=== PATIENT | male | born 1955 | race Caucasian/White ===

== ENCOUNTER 2021-02-07 10:48 | Inpatient (IN) | payer MEDICARE, OTHER ==
[2021-02-07] MEDS ORDERED: Ondansetron 4 MG/2 ML SDV ONE (10:52)
[2021-02-07] MEDS ORDERED: Morphine 2 MG/ML SYRINGE ONE ×2 (10:52→11:14)
[2021-02-07] MEDS ORDERED: Sodium Chloride 0.9% 1,000 ML IV ONE (11:11)
[2021-02-07] MEDS ORDERED: Morphine 2 MG/ML SYRINGE IVPUSH ONE ×2 (11:13)
[2021-02-07] MEDS ORDERED: Ondansetron 4 MG/2 ML SDV IVPUSH ONE (11:13)
[2021-02-07] MEDS ORDERED: Iopamidol 755 Mg/ML 75 ML Bottle IVPUSH ONE (11:20)
--- NOTE | 2021-02-07 11:21 | EDM.PDOC ---
ED HPI GENERAL MEDICAL PROBLEM - General Chief Complaint: Abdominal Pain Stated Complaint: LEFT FLANK PAIN, lLEFT BELLY PAIN Time Seen by Provider: 02/07/21 11:00 Source of Information: Reports: Patient History Limitations: Reports: No Limitations - History of Present Illness INITIAL COMMENTS - FREE TEXT/NARRATIVE: 65-year-old male presents to the emergency room with complaints of left flank and abdominal pain that started at midnight. He reports the pain is sharp and intense colicky pain. He has had a history of kidney stones in the past with previous lithotripsies. He reports that this is similar to his previous experiences. He is also noticing some lower abdominal pain as well. He has been experiencing nausea and and retching. His symptoms started about midnight last night. He is from [facility] has been in the [facility] since Wednesday hunting pheasants and ducks with friends. He is otherwise a healthy gentleman he does not take any prescribed medications. No history of diabetes, hypertension, no GERD. Onset: Today Onset Date: 02/07/21 Onset Time: 00:00 Duration: Hour(s):, Colic, Constant Location: Reports: Abdomen, Back, Radiates to (Left flank into his abdomen) Quality: Reports: Stabbing Severity: Severe Improves with: Reports: None Worsens with: Reports: None Associated Symptoms: Reports: Nausea/Vomiting. 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 [No Known Home Meds] 02/07/21 [History] ED ROS GENERAL - Review of Systems Review Of Systems: See Below Constitutional: Reports: No Symptoms HEENT: Reports: No Symptoms Respiratory: Reports: No Symptoms Cardiovascular: Reports: No Symptoms Endocrine: Reports: No Symptoms GI/Abdominal: Reports: Abdominal Pain, Nausea, Vomiting : Reports: Flank Pain. Denies: Dysuria, Hematuria Musculoskeletal: Reports: No Symptoms Skin: Reports: No Symptoms Neurological: Reports: No Symptoms Psychiatric: Reports: No Symptoms Hematologic/Lymphatic: Reports: No Symptoms Immunologic: Reports: No Symptoms ED EXAM, GI/ABD - Physical Exam Exam: See Below Text/Narrative:: Middle-age male in acute distress with a colicky pain. Exam Limited By: No Limitations General Appearance: Alert, WD/WN, Severe Distress Eyes: Bilateral: EOMI Ears: Hearing Grossly Normal Nose: Normal Inspection Throat/Mouth: Normal Voice, No Airway Compromise Head: Atraumatic, Normocephalic Neck: Normal Inspection, Supple, Non-Tender, Full Range of Motion Respiratory/Chest: No Respiratory Distress, Lungs Clear, Normal Breath Sounds Cardiovascular: Normal Peripheral Pulses, Regular Rate, Rhythm GI/Abdominal Exam: Normal Bowel Sounds, Soft, No Organomegaly, No Distention, No Abnormal Bruit, No Mass. No: Distended, Guarding, Rigid Back Exam: Normal Inspection Extremities: Normal Inspection, Normal Range of Motion, Non-Tender, No Pedal Edema, Normal Capillary Refill Neurological: Alert, Oriented, No Motor/Sensory Deficits Psychiatric: Normal Affect, Normal Mood Skin Exam: Warm, Dry, Intact, Normal Color, No Rash Lymphatic: No Adenopathy Course - Vital Signs Last Recorded V/S: Last Vital Signs Temp 97.2 F 02/07/21 10:50 Pulse 95 02/07/21 10:50 Resp 24 H 02/07/21 10:50 BP 152/105 H 02/07/21 10:50 Pulse Ox 98 02/07/21 10:50 - Orders/Labs/Meds Orders: Active Orders 24 hr Category Date Time Status AMYLASE [CHEM] Stat Lab 02/07/21 11:00 Received LIPASE [CHEM] Stat Lab 02/07/21 11:00 Received MAGNESIUM [CHEM] Stat Lab 02/07/21 11:00 Received HYDROmorphone [Dilaudid] Med 02/07/21 13:22 Active 1 mg IVPUSH Q1H PRN Sodium Chloride 0.9% [Normal Saline] 1,000 ml Med 02/07/21 13:30 Active IV ASDIRECTED Sodium Chloride 0.9% [Normal Saline] 50 ml Med 02/07/21 11:30 Active IV ASDIRECTED Medication Orders Hydromorphone HCl (Hydromorphone 1 Mg/Ml Syringe) 1 mg IVPUSH Q1H PRN PRN Reason: Abdominal Pain Last Admin: 02/07/21 13:28 Dose: 1 mg Documented by: TEDDY Sodium Chloride (Normal Saline) 50 mls @ 200 mls/min IV ASDIRECTED HCAD Last Admin: 02/07/21 12:32 Dose: 200 mls/min Documented by: LANCE Sodium Chloride (Normal Saline) 1,000 mls @ 150 mls/hr IV ASDIRECTED CHAD Last Admin: 02/07/21 13:31 Dose: 150 mls/hr Documented by: TEDDY Labs: Laboratory Tests 02/07/21 02/07/21 02/07/21 Range/Units 11:00 11:00 11:00 WBC 12.72 H (5.00-10.00) 10^3/uL RBC 5.10 (4.50-6.00) 10^6/uL Hgb 15.9 (13.0-17.0) g/dL Hct 47.3 (40.0-52.0) % MCV 92.7 H (82.0-92.0) fL MCH 31.2 H (27.0-31.0) pg MCHC 33.6 (32.0-36.0) g/dL RDW 12.3 (11.5-14.5) % Plt Count 326 (150-400) 10^3/uL MPV 9.8 (7.4-10.4) fL Add Manual Diff Yes Neutrophils % (Manual) 89 H (50-70) % Band Neutrophils % 1 L (4-12) % Lymphocytes % (Manual) 7 L (20-40) % Atypical Lymphs % 0 Monocytes % (Manual) 3 (2-8) % Eosinophils % (Manual) 0 L (1-3) % Basophils % (Manual) 0 (0-1) % Platelet Estimate Adequate Sodium 144 (136-145) mmol/L Potassium 4.3 (3.5-5.1) mmol/L Chloride 106 (98-107) mmol/L Carbon Dioxide 28.2 (21.0-32.0) mmol/L Anion Gap 14.1 (5-15) mmol/L BUN 22 H (7-18) mg/dL Creatinine 1.08 (0.51-1.17) mg/dL Est Cr Clr Drug Dosing 73.85 mL/min Estimated GFR (MDRD) > 60 mL/min Glucose 175 H (70-140) mg/dL Lactic Acid 2.1 H (0.4-2.0) mmol/L Calcium 9.2 (8.7-10.3) mg/dL Total Bilirubin 0.4 (0.2-1.0) mg/dL AST 29 (15-37) U/L ALT 52 (14-63) U/L Alkaline Phosphatase 74 (46-116) U/L Total Protein 7.5 (6.4-8.2) g/dL Albumin 4.09 (3.40-5.00) g/dL Meds: Medications Generic Name Dose Route Start Last Admin Trade Name Freq PRN Reason Stop Dose Admin Hydromorphone HCl 1 mg 02/07/21 13:22 02/07/21 13:28 Hydromorphone 1 Mg/Ml Syringe IVPUSH 1 mg Q1H PRN Administration Abdominal Pain Sodium Chloride 50 mls @ 200 mls/min 02/07/21 11:30 02/07/21 12:32 Normal Saline IV 200 mls/min ASDIRECTED CHAD Administration Sodium Chloride 1,000 mls @ 150 mls/hr 02/07/21 13:30 02/07/21 13:31 Normal Saline IV 150 mls/hr ASDIRECTED CHAD Administration Discontinued Medications Generic Name Dose Route Start Last Admin Trade Name Freq PRN Reason Stop Dose Admin Hydromorphone HCl 1 mg 02/07/21 11:40 02/07/21 11:50 Hydromorphone 1 Mg/Ml Syringe IVPUSH 02/07/21 11:41 1 mg ONETIME ONE Administration Hydromorphone HCl Confirm 02/07/21 11:42 02/07/21 13:17 Hydromorphone 1 Mg/Ml Syringe Administered 02/07/21 11:43 Not Given Dose 1 mg .ROUTE .STK-MED ONE Sodium Chloride 1,000 mls @ 1,000 mls/hr 02/07/21 11:11 02/07/21 11:05 Normal Saline IV 02/07/21 12:10 1,000 mls/hr .BOLUS ONE Administration Iopamidol 75 ml 02/07/21 11:20 02/07/21 12:32 Iopamidol 755 Mg/Ml 75 Ml Bottle IVPUSH 02/07/21 11:21 75 ml ONETIME ONE Administration Morphine Sulfate Confirm 02/07/21 10:52 02/07/21 11:32 Morphine 2 Mg/Ml Syringe Administered 02/07/21 10:53 Not Given Dose 2 mg .ROUTE .STK-MED ONE Morphine Sulfate 2 mg 02/07/21 11:13 02/07/21 11:00 Morphine 2 Mg/Ml Syringe IVPUSH 02/07/21 11:14 2 mg ONETIME ONE Administration Morphine Sulfate 2 mg 02/07/21 11:13 02/07/21 11:20 Morphine 2 Mg/Ml Syringe IVPUSH 02/07/21 11:14 2 mg ONETIME ONE Administration Morphine Sulfate Confirm 02/07/21 11:14 02/07/21 11:32 Morphine 2 Mg/Ml Syringe Administered 02/07/21 11:15 Not Given Dose 2 mg .ROUTE .STK-MED ONE Ondansetron HCl Confirm 02/07/21 10:52 02/07/21 11:32 Ondansetron 4 Mg/2 Ml Sdv Administered 02/07/21 10:53 Not Given Dose 4 mg .ROUTE .STK-MED ONE Ondansetron HCl 4 mg 02/07/21 11:13 02/07/21 10:56 Ondansetron 4 Mg/2 Ml Sdv IVPUSH 02/07/21 11:14 4 mg ONETIME ONE Administration - Re-Assessments/Exams Free Text/Narrative Re-Assessment/Exam: 02/07/21 11:25 Patient was given 4 mg IV Zofran, patient has been given a total of 4 mg IV morphine patient upon arrival was in severe distress due to pain which she rated at 10 out of 10 upon arrival. Pain is now a 4 out of 10. 02/07/21 12:10 Patient was given additional 1 mg of IV Dilaudid. Pain is now a 2 out of 10. He is resting comfortably on the cart Departure - Departure Time of Disposition: 14:19 Disposition: Admitted As Inpatient 65 Condition: Fair Clinical Impression: Renal calculus, left Acute pancreatitis Qualifiers: Pancreatitis type: unspecified pancreatitis type Acute pancreatitis complication: no infection or necrosis Qualified Code(s): K85.90 - Acute pancreatitis without necrosis or infection, unspecified - Discharge Information Referrals: PCP,None [Ordering Only Provider] - Forms: ED Department Discharge Sepsis Event Note (ED) - Focused Exam Vital Signs: Vital Signs Temp Pulse Resp BP Pulse Ox 02/07/21 10:50 97.2 F 95 24 H 152/105 H 98 - My Orders Last 24 Hours: My Active Orders 02/07/21 11:00 AMYLASE [CHEM] Stat LIPASE [CHEM] Stat MAGNESIUM [CHEM] Stat 02/07/21 11:30 Sodium Chloride 0.9% [Normal Saline] 50 ml IV ASDIRECTED 02/07/21 13:22 HYDROmorphone [Dilaudid] 1 mg IVPUSH Q1H PRN 02/07/21 13:30 Sodium Chloride 0.9% [Normal Saline] 1,000 ml IV ASDIRECTED - Assessment/Plan Last 24 Hours: My Active Orders 02/07/21 11:00 AMYLASE [CHEM] Stat LIPASE [CHEM] Stat MAGNESIUM [CHEM] Stat 02/07/21 11:30 Sodium Chloride 0.9% [Normal Saline] 50 ml IV ASDIRECTED 02/07/21 13:22 HYDROmorphone [Dilaudid] 1 mg IVPUSH Q1H PRN 02/07/21 13:30 Sodium Chloride 0.9% [Normal Saline] 1,000 ml IV ASDIRECTED Assessment:: 1. Acute pancreatitis 2. Nonobstructive left renal calculus Plan: 1. Admit to inpatient to Dr. Chrissy Delarosa 2. IV fluid resuscitation 3. Pain management. 4. Bowel rest, n.p.o.
[2021-02-07 11:30] LABS: ANION GAP 14.1 mmol/L (5-15); CHLORIDE,CL 106 mmol/L (98-107); SODIUM,NA 144 mmol/L (136-145)
[2021-02-07] MEDS ORDERED: Sodium Chloride 0.9% 50 ML IV SCH (11:30)
[2021-02-07] MEDS ORDERED: HYDROmorphone 1 MG/ML Syringe IVPUSH ONE (11:40)
[2021-02-07] MEDS ORDERED: HYDROmorphone 1 MG/ML Syringe ONE (11:42)
--- NOTE | 2021-02-07 12:47 | CT ---
[id number] CT/CT Abdomen Pelvis W IV EXAM: CT Abdomen Pelvis W IV INDICATION: KIDNEY STONE, FLANK ABDOMEN PAIN. COMPARISON: None. DISCUSSION: There is edema surrounding the pancreas and extending into the upper mesentery most suggestive of acute pancreatitis. No evident necrosis or fluid collection. Small volume free fluid in the pelvis and paracolic gutters. 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 Mild prostatomegaly. Atherosclerotic plaque throughout the aorta and in scattered major branches. Hepatic steatosis. 9 mm hypodensity in the superior right lobe of the liver likely representing a small cyst, but too small to completely characterize. Scattered nonobstructing left intrarenal calculi measuring up to 4 mm. No ureteral calculus or hydronephrosis on either side. Mildly prominent stool volume in the proximal colon. Upper abdominal varices may relate to portal hypertension. Mild gynecomastia. Mild dependent atelectasis in the imaged lung bases. Degenerative changes in the spine and hips. The spleen, adrenal glands, right kidney, gallbladder, and appendix are normal in appearance. IMPRESSION: 1. Acute interstitial pancreatitis with small volume ascites. Correlation with pancreatic enzymes may be useful for confirmation. 2. Hepatic steatosis. 3. Upper abdominal varices suggestive of portal hypertension. 4. Nonobstructing left intrarenal calculi. No ureteral calculus or hydronephrosis. Junior Robbins MD 02/07/21 2344 Thank you for allowing us to participate in the care of your patient.
[2021-02-07] MEDS: HYDROmorphone 1 MG/ML Syringe IVPUSH PRN ×7 (13:28→22:35)
[2021-02-07] MEDS: Sodium Chloride 0.9% 1,000 ML IV SCH ×2 (13:31→20:20)
[2021-02-08] MEDS: HYDROmorphone 1 MG/ML Syringe IVPUSH PRN ×6 (01:49→22:23)
[2021-02-08] MEDS: Sodium Chloride 0.9% 1,000 ML IV SCH ×3 (02:49→15:50)
[2021-02-08 07:55] LABS: ANION GAP 10.4 mmol/L (5-15); CHLORIDE,CL 110 mmol/L (98-107); SODIUM,NA 144 mmol/L (136-145)
--- NOTE | 2021-02-08 11:04 | PCM.PN ---
- General Info Date of Service: 02/08/21 Admission Dx/Problem (Free Text): Acute pancreatitis - Review of Systems Systems Review Comment:: Gregory is seen today on inpatient rounds for an admission on 02/07 with acute pancreatitis. He has no clear etiology for pancreatitis. He is in the [facility] from [facility]. He did have some alcoholic beverages but nothing excessive and has no hx of EtOH abuse. He has not had his lipids checked in a while per his report. He is not on any prescription medications but does take some supplements. Since admission he has had a total mg of IV hydromorphone. It can be given up to every 1 hour, he tries to make it 2-3 hours between dosing. He initially had LUQ pain but not feels it has moved to his LLQ and he feels like he has stool he needs to pass. 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 He has had renal calculi in the past. This pain feels somewhat different. He has been NPO with ice chips. He has not really been nauseated. His Cathleen is present today with him. He has never had pancreatitis in the past. His lipase has trended down from 6286 on 02/07 to 2761 today (02/08). He is anxious to go home but also recognizes that he shouldn't push it as he wants to be better before discharge. - Patient Data Vitals - Most Recent: Last Vital Signs Temp 98.2 F 02/08/21 06:55 Pulse 98 02/08/21 06:55 Resp 20 02/08/21 06:55 BP 145/79 H 02/08/21 06:55 Pulse Ox 91 L 02/08/21 06:55 Weight - Most Recent: 188 lb I&O - Last 24 Hours: Intake & Output 02/07/21 02/08/21 02/08/21 22:59 06:59 14:59 Intake Total 531 1675 Output Total 350 Balance 181 1675 Lab Results Last 24 Hours: Laboratory Results - last 24 hr 02/07/21 02/07/21 02/07/21 Range/Units 11:00 11:00 11:00 WBC 12.72 H (5.00-10.00) 10^3/uL RBC 5.10 (4.50-6.00) 10^6/uL Hgb 15.9 (13.0-17.0) g/dL Hct 47.3 (40.0-52.0) % MCV 92.7 H (82.0-92.0) fL MCH 31.2 H (27.0-31.0) pg MCHC 33.6 (32.0-36.0) g/dL RDW 12.3 (11.5-14.5) % Plt Count 326 (150-400) 10^3/uL MPV 9.8 (7.4-10.4) fL Immature Gran % (Auto) (0.0-5.0) % Neut % (Auto) (50.0-70.0) % Lymph % (Auto) (20.0-40.0) % [place] % (Auto) (2.0-8.0) % Eos % (Auto) (1.0-3.0) % Baso % (Auto) (0.0-1.0) % Neut # (Auto) (2.50-7.00) 10^3/uL Lymph # (Auto) (1.00-4.00) 10^3/uL [place] # (Auto) (0.10-0.80) 10^3/uL Eos # (Auto) (0.10-0.30) 10^3/uL Baso # (Auto) (0.00-0.10) 10^3/uL Immature Gran # (Auto) (0.00-0.50) 10^3/uL Add Manual Diff Yes Neutrophils % (Manual) 89 H (50-70) % Band Neutrophils % 1 L (4-12) % Lymphocytes % (Manual) 7 L (20-40) % Atypical Lymphs % 0 Monocytes % (Manual) 3 (2-8) % Eosinophils % (Manual) 0 L (1-3) % Basophils % (Manual) 0 (0-1) % Platelet Estimate Adequate Sodium 144 (136-145) mmol/L Potassium 4.3 (3.5-5.1) mmol/L Chloride 106 (98-107) mmol/L Carbon Dioxide 28.2 (21.0-32.0) mmol/L Anion Gap 14.1 (5-15) mmol/L BUN 22 H (7-18) mg/dL Creatinine 1.08 (0.51-1.17) mg/dL Est Cr Clr Drug Dosing 73.85 mL/min Estimated GFR (MDRD) > 60 mL/min Glucose 175 H (70-140) mg/dL Lactic Acid (0.4-2.0) mmol/L Calcium 9.2 (8.7-10.3) mg/dL Magnesium 2.1 (1.8-2.4) mg/dL Total Bilirubin 0.4 (0.2-1.0) mg/dL AST 29 (15-37) U/L ALT 52 (14-63) U/L Alkaline Phosphatase 74 (46-116) U/L Total Protein 7.5 (6.4-8.2) g/dL Albumin 4.09 (3.40-5.00) g/dL Amylase > 650 H* (25-125) U/L Lipase 6286 H (73-393) U/L SARS CoV-2 RNA Rapid MAGGIE (NEGATIVE) 02/07/21 02/07/21 02/08/21 Range/Units 11:00 17:45 07:10 WBC 13.99 H (5.00-10.00) 10^3/uL RBC 4.56 (4.50-6.00) 10^6/uL Hgb 14.1 D (13.0-17.0) g/dL Hct 43.1 (40.0-52.0) % MCV 94.5 H (82.0-92.0) fL MCH 30.9 (27.0-31.0) pg MCHC 32.7 (32.0-36.0) g/dL RDW 13.0 (11.5-14.5) % Plt Count 274 (150-400) 10^3/uL MPV 9.7 (7.4-10.4) fL Immature Gran % (Auto) 0.4 (0.0-5.0) % Neut % (Auto) 88.3 H (50.0-70.0) % Lymph % (Auto) 5.2 L (20.0-40.0) % [place] % (Auto) 5.9 (2.0-8.0) % Eos % (Auto) 0.1 L (1.0-3.0) % Baso % (Auto) 0.1 (0.0-1.0) % Neut # (Auto) 12.36 H (2.50-7.00) 10^3/uL Lymph # (Auto) 0.73 L (1.00-4.00) 10^3/uL [place] # (Auto) 0.82 H (0.10-0.80) 10^3/uL Eos # (Auto) 0.01 L (0.10-0.30) 10^3/uL Baso # (Auto) 0.02 (0.00-0.10) 10^3/uL Immature Gran # (Auto) 0.05 (0.00-0.50) 10^3/uL Add Manual Diff Neutrophils % (Manual) (50-70) % Band Neutrophils % (4-12) % Lymphocytes % (Manual) (20-40) % Atypical Lymphs % Monocytes % (Manual) (2-8) % Eosinophils % (Manual) (1-3) % Basophils % (Manual) (0-1) % Platelet Estimate Sodium (136-145) mmol/L Potassium (3.5-5.1) mmol/L Chloride (98-107) mmol/L Carbon Dioxide (21.0-32.0) mmol/L Anion Gap (5-15) mmol/L BUN (7-18) mg/dL Creatinine (0.51-1.17) mg/dL Est Cr Clr Drug Dosing mL/min Estimated GFR (MDRD) mL/min Glucose (70-140) mg/dL Lactic Acid 2.1 H (0.4-2.0) mmol/L Calcium (8.7-10.3) mg/dL Magnesium (1.8-2.4) mg/dL Total Bilirubin (0.2-1.0) mg/dL AST (15-37) U/L ALT (14-63) U/L Alkaline Phosphatase (46-116) U/L Total Protein (6.4-8.2) g/dL Albumin (3.40-5.00) g/dL Amylase (25-125) U/L Lipase (73-393) U/L SARS CoV-2 RNA Rapid MAGGIE Negative (NEGATIVE) 02/08/21 Range/Units 07:10 WBC (5.00-10.00) 10^3/uL RBC (4.50-6.00) 10^6/uL Hgb (13.0-17.0) g/dL Hct (40.0-52.0) % MCV (82.0-92.0) fL MCH (27.0-31.0) pg MCHC (32.0-36.0) g/dL RDW (11.5-14.5) % Plt Count (150-400) 10^3/uL MPV (7.4-10.4) fL Immature Gran % (Auto) (0.0-5.0) % Neut % (Auto) (50.0-70.0) % Lymph % (Auto) (20.0-40.0) % [place] % (Auto) (2.0-8.0) % Eos % (Auto) (1.0-3.0) % Baso % (Auto) (0.0-1.0) % Neut # (Auto) (2.50-7.00) 10^3/uL Lymph # (Auto) (1.00-4.00) 10^3/uL [place] # (Auto) (0.10-0.80) 10^3/uL Eos # (Auto) (0.10-0.30) 10^3/uL Baso # (Auto) (0.00-0.10) 10^3/uL Immature Gran # (Auto) (0.00-0.50) 10^3/uL Add Manual Diff Neutrophils % (Manual) (50-70) % Band Neutrophils % (4-12) % Lymphocytes % (Manual) (20-40) % Atypical Lymphs % Monocytes % (Manual) (2-8) % Eosinophils % (Manual) (1-3) % Basophils % (Manual) (0-1) % Platelet Estimate Sodium 144 (136-145) mmol/L Potassium 4.1 (3.5-5.1) mmol/L Chloride 110 H (98-107) mmol/L Carbon Dioxide 27.7 (21.0-32.0) mmol/L Anion Gap 10.4 (5-15) mmol/L BUN 19 H (7-18) mg/dL Creatinine 1.01 (0.51-1.17) mg/dL Est Cr Clr Drug Dosing 78.97 mL/min Estimated GFR (MDRD) > 60 mL/min Glucose 143 H (70-140) mg/dL Lactic Acid (0.4-2.0) mmol/L Calcium 8.0 L (8.7-10.3) mg/dL Magnesium (1.8-2.4) mg/dL Total Bilirubin 0.9 (0.2-1.0) mg/dL AST 25 (15-37) U/L ALT 36 (14-63) U/L Alkaline Phosphatase 50 (46-116) U/L Total Protein 6.2 L (6.4-8.2) g/dL Albumin 3.05 L (3.40-5.00) g/dL Amylase (25-125) U/L Lipase 2761 H (73-393) U/L SARS CoV-2 RNA Rapid MAGGIE (NEGATIVE) Med Orders - Current: Current Medications Hydromorphone HCl (Hydromorphone 1 Mg/Ml Syringe) 1 mg IVPUSH Q1H PRN PRN Reason: Abdominal Pain Last Admin: 02/08/21 08:35 Dose: 1 mg Documented by: Sodium Chloride (Normal Saline) 50 mls @ 200 mls/min IV ASDIRECTED [facility] Last Admin: 02/07/21 12:32 Dose: 200 mls/min Documented by: Sodium Chloride (Normal Saline) 1,000 mls @ 150 mls/hr IV ASDIRECTED [facility] Last Admin: 02/08/21 09:22 Dose: 150 mls/hr Documented by: Naloxegol (Naloxegol Oxalate 25 Mg Tab) 25 mg PO DAILY [facility] Ondansetron HCl (Ondansetron 4 Mg/2 Ml Sdv) 4 mg IVPUSH Q4H PRN PRN Reason: Nausea/Vomiting Discontinued Medications Hydromorphone HCl (Hydromorphone 1 Mg/Ml Syringe) 1 mg IVPUSH ONETIME ONE Stop: 02/07/21 11:41 Last Admin: 02/07/21 11:50 Dose: 1 mg Documented by: Hydromorphone HCl (Hydromorphone 1 Mg/Ml Syringe) Confirm Administered Dose 1 mg .ROUTE .STK-MED ONE Stop: 02/07/21 11:43 Last Admin: 02/07/21 13:17 Dose: Not Given Documented by: Sodium Chloride (Normal Saline) 1,000 mls @ 1,000 mls/hr IV .BOLUS ONE Stop: 02/07/21 12:10 Last Admin: 02/07/21 11:05 Dose: 1,000 mls/hr Documented by: Iopamidol (Iopamidol 755 Mg/Ml 75 Ml Bottle) 75 ml IVPUSH ONETIME ONE Stop: 02/07/21 11:21 Last Admin: 02/07/21 12:32 Dose: 75 ml Documented by: Morphine Sulfate (Morphine 2 Mg/Ml Syringe) Confirm Administered Dose 2 mg .ROUTE .STK-MED ONE Stop: 02/07/21 10:53 Last Admin: 02/07/21 11:32 Dose: Not Given Documented by: Morphine Sulfate (Morphine 2 Mg/Ml Syringe) 2 mg IVPUSH ONETIME ONE Stop: 02/07/21 11:14 Last Admin: 02/07/21 11:00 Dose: 2 mg Documented by: Morphine Sulfate (Morphine 2 Mg/Ml Syringe) 2 mg IVPUSH ONETIME ONE Stop: 02/07/21 11:14 Last Admin: 02/07/21 11:20 Dose: 2 mg Documented by: Morphine Sulfate (Morphine 2 Mg/Ml Syringe) Confirm Administered Dose 2 mg .ROU TE .STK-MED ONE Stop: 02/07/21 11:15 Last Admin: 02/07/21 11:32 Dose: Not Given Documented by: Ondansetron HCl (Ondansetron 4 Mg/2 Ml Sdv) Confirm Administered Dose 4 mg .ROUTE .STK-MED ONE Stop: 02/07/21 10:53 Last Admin: 02/07/21 11:32 Dose: Not Given Documented by: Ondansetron HCl (Ondansetron 4 Mg/2 Ml Sdv) 4 mg IVPUSH ONETIME ONE Stop: 02/07/21 11:14 Last Admin: 02/07/21 10:56 Dose: 4 mg Documented by: - Exam General: Alert, Oriented, Cooperative, No Acute Distress Lungs: Clear to Auscultation, Normal Respiratory Effort Cardiovascular: Regular Rate, Regular Rhythm, No Murmurs GI/Abdominal Exam: Normal Bowel Sounds, Soft, Non-Tender, No Organomegaly, No Di stention Extremities: No Pedal Edema - Patient Data Lab Results Last 24 hrs: Laboratory Results - last 24 hr 02/07/21 02/07/21 02/07/21 Range/Units 11:00 11:00 11:00 WBC 12.72 H (5.00-10.00) 10^3/uL RBC 5.10 (4.50-6.00) 10^6/uL Hgb 15.9 (13.0-17.0) g/dL Hct 47.3 (40.0-52.0) % MCV 92.7 H (82.0-92.0) fL MCH 31.2 H (27.0-31.0) pg MCHC 33.6 (32.0-36.0) g/dL RDW 12.3 (11.5-14.5) % Plt Count 326 (150-400) 10^3/uL MPV 9.8 (7.4-10.4) fL Immature Gran % (Auto) (0.0-5.0) % Neut % (Auto) (50.0-70.0) % Lymph % (Auto) (20.0-40.0) % [place] % (Auto) (2.0-8.0) % Eos % (Auto) (1.0-3.0) % Baso % (Auto) (0.0-1.0) % Neut # (Auto) (2.50-7.00) 10^3/uL Lymph # (Auto) (1.00-4.00) 10^3/uL [place] # (Auto) (0.10-0.80) 10^3/uL Eos # (Auto) (0.10-0.30) 10^3/uL Baso # (Auto) (0.00-0.10) 10^3/uL Immature Gran # (Auto) (0.00-0.50) 10^3/uL Add Manual Diff Yes Neutrophils % (Manual) 89 H (50-70) % Band Neutrophils % 1 L (4-12) % Lymphocytes % (Manual) 7 L (20-40) % Atypical Lymphs % 0 Monocytes % (Manual) 3 (2-8) % Eosinophils % (Manual) 0 L (1-3) % Basophils % (Manual) 0 (0-1) % Platelet Estimate Adequate Sodium 144 (136-145) mmol/L Potassium 4.3 (3.5-5.1) mmol/L Chloride 106 (98-107) mmol/L Carbon Dioxide 28.2 (21.0-32.0) mmol/L Anion Gap 14.1 (5-15) mmol/L BUN 22 H (7-18) mg/dL Creatinine 1.08 (0.51-1.17) mg/dL Est Cr Clr Drug Dosing 73.85 mL/min Estimated GFR (MDRD) > 60 mL/min Glucose 175 H (70-140) mg/dL Lactic Acid (0.4-2.0) mmol/L Calcium 9.2 (8.7-10.3) mg/dL Magnesium 2.1 (1.8-2.4) mg/dL Total Bilirubin 0.4 (0.2-1.0) mg/dL AST 29 (15-37) U/L ALT 52 (14-63) U/L Alkaline Phosphatase 74 (46-116) U/L Total Protein 7.5 (6.4-8.2) g/dL Albumin 4.09 (3.40-5.00) g/dL Amylase > 650 H* (25-125) U/L Lipase 6286 H (73-393) U/L SARS CoV-2 RNA Rapid MAGGIE (NEGATIVE) 02/07/21 02/07/21 02/08/21 Range/Units 11:00 17:45 07:10 WBC 13.99 H (5.00-10.00) 10^3/uL RBC 4.56 (4.50-6.00) 10^6/uL Hgb 14.1 D (13.0-17.0) g/dL Hct 43.1 (40.0-52.0) % MCV 94.5 H (82.0-92.0) fL MCH 30.9 (27.0-31.0) pg MCHC 32.7 (32.0-36.0) g/dL RDW 13.0 (11.5-14.5) % Plt Count 274 (150-400) 10^3/uL MPV 9.7 (7.4-10.4) fL Immature Gran % (Auto) 0.4 (0.0-5.0) % Neut % (Auto) 88.3 H (50.0-70.0) % Lymph % (Auto) 5.2 L (20.0-40.0) % [place] % (Auto) 5.9 (2.0-8.0) % Eos % (Auto) 0.1 L (1.0-3.0) % Baso % (Auto) 0.1 (0.0-1.0) % Neut # (Auto) 12.36 H (2.50-7.00) 10^3/uL Lymph # (Auto) 0.73 L (1.00-4.00) 10^3/uL [place] # (Auto) 0.82 H (0.10-0.80) 10^3/uL Eos # (Auto) 0.01 L (0.10-0.30) 10^3/uL Baso # (Auto) 0.02 (0.00-0.10) 10^3/uL Immature Gran # (Auto) 0.05 (0.00-0.50) 10^3/uL Add Manual Diff Neutrophils % (Manual) (50-70) % Band Neutrophils % (4-12) % Lymphocytes % (Manual) (20-40) % Atypical Lymphs % Monocytes % (Manual) (2-8) % Eosinophils % (Manual) (1-3) % Basophils % (Manual) (0-1) % Platelet Estimate Sodium (136-145) mmol/L Potassium (3.5-5.1) mmol/L Chloride (98-107) mmol/L Carbon Dioxide (21.0-32.0) mmol/L Anion Gap (5-15) mmol/L BUN (7-18) mg/dL Creatinine (0.51-1.17) mg/dL Est Cr Clr Drug Dosing mL/min Estimated GFR (MDRD) mL/min Glucose (70-140) mg/dL Lactic Acid 2.1 H (0.4-2.0) mmol/L Calcium (8.7-10.3) mg/dL Magnesium (1.8-2.4) mg/dL Total Bilirubin (0.2-1.0) mg/dL AST (15-37) U/L ALT (14-63) U/L Alkaline Phosphatase (46-116) U/L Total Protein (6.4-8.2) g/dL Albumin (3.40-5.00) g/dL Amylase (25-125) U/L Lipase (73-393) U/L SARS CoV-2 RNA Rapid MAGGIE Negative (NEGATIVE) 02/08/21 Range/Units 07:10 WBC (5.00-10.00) 10^3/uL RBC (4.50-6.00) 10^6/uL Hgb (13.0-17.0) g/dL Hct (40.0-52.0) % MCV (82.0-92.0) fL MCH (27.0-31.0) pg MCHC (32.0-36.0) g/dL RDW (11.5-14.5) % Plt Count (150-400) 10^3/uL MPV (7.4-10.4) fL Immature Gran % (Auto) (0.0-5.0) % Neut % (Auto) (50.0-70.0) % Lymph % (Auto) (20.0-40.0) % [place] % (Auto) (2.0-8.0) % Eos % (Auto) (1.0-3.0) % Baso % (Auto) (0.0-1.0) % Neut # (Auto) (2.50-7.00) 10^3/uL Lymph # (Auto) (1.00-4.00) 10^3/uL [place] # (Auto) (0.10-0.80) 10^3/uL Eos # (Auto) (0.10-0.30) 10^3/uL Baso # (Auto) (0.00-0.10) 10^3/uL Immature Gran # (Auto) (0.00-0.50) 10^3/uL Add Manual Diff Neutrophils % (Manual) (50-70) % Band Neutrophils % (4-12) % Lymphocytes % (Manual) (20-40) % Atypical Lymphs % Monocytes % (Manual) (2-8) % Eosinophils % (Manual) (1-3) % Basophils % (Manual) (0-1) % Platelet Estimate Sodium 144 (136-145) mmol/L Potassium 4.1 (3.5-5.1) mmol/L Chloride 110 H (98-107) mmol/L Carbon Dioxide 27.7 (21.0-32.0) mmol/L Anion Gap 10.4 (5-15) mmol/L BUN 19 H (7-18) mg/dL Creatinine 1.01 (0.51-1.17) mg/dL Est Cr Clr Drug Dosing 78.97 mL/min Estimated GFR (MDRD) > 60 mL/min Glucose 143 H (70-140) mg/dL Lactic Acid (0.4-2.0) mmol/L Calcium 8.0 L (8.7-10.3) mg/dL Magnesium (1.8-2.4) mg/dL Total Bilirubin 0.9 (0.2-1.0) mg/dL AST 25 (15-37) U/L ALT 36 (14-63) U/L Alkaline Phosphatase 50 (46-116) U/L Total Protein 6.2 L (6.4-8.2) g/dL Albumin 3.05 L (3.40-5.00) g/dL Amylase (25-125) U/L Lipase 2761 H (73-393) U/L SARS CoV-2 RNA Rapid MAGGIE (NEGATIVE) Result Diagrams: 02/08/21 07:10 02/08/21 07:10 Sepsis Event Note - Evaluation Sepsis Screening Result: No Definite Risk - Focused Exam Vital Signs: Vital Signs Temp Pulse Resp BP Pulse Ox 02/08/21 06:55 98.2 F 98 20 145/79 H 91 L 02/08/21 02:00 98.3 F 102 H 20 132/77 91 L - Problem List Review Problem List Initiated/Reviewed/Updated: Yes - My Orders Last 24 Hours: My Active Orders 02/07/21 16:21 Ondansetron [Zofran] 4 mg IVPUSH Q4H PRN 02/08/21 10:59 LIPID PANEL [CHEM] Routine 02/08/21 11:00 Naloxegol Oxalate [Movantik] 25 mg PO DAILY 02/08/21 11:01 A1C [GLYCOSYLATED HEMOGLOBIN,HGBA1C] [CHEM] Routine 02/09/21 05:11 CBC WITH AUTO DIFF [HEME] AM COMPREHENSIVE METABOLIC PN,CMP [CHEM] AM LIPASE [CHEM] AM 02/10/21 05:11 CBC WITH AUTO DIFF [HEME] AM COMPREHENSIVE METABOLIC PN,CMP [CHEM] AM LIPASE [CHEM] AM - Assessment Assessment:: Admission Diagnoses: Acute pancreatitis, no clear etiology - Continue NS at 150 mL/hour - NPO status with ice chips - Hydromorphone 1 mg IV q 1 hour PRN - Lipid panel (elevated total cholesterol and LDL but TG's normal) - Daily labs Elevated fasting blood culture - A1C 5.8, will need monitoring as an outpatient to watch for progression to diabetes Intrarenal nephrolithiasis without obstruction - No further intervention necessary Opioid induced constipation - Start Movantik 25 mg PO daily (02/08) CODE STATUS: Full Code
[2021-02-08 11:21] LABS: HEMOGLOBIN A1C 5.8 % (4.3-5.7)
[2021-02-08] MEDS: Naloxegol Oxalate 25 MG Tab PO SCH (11:24)
[2021-02-08] MEDS: Ondansetron 4 MG/2 ML SDV IVPUSH PRN (17:52)
[2021-02-09] MEDS: HYDROmorphone 1 MG/ML Syringe IVPUSH PRN ×4 (03:37→22:05)
[2021-02-09] MEDS: Sodium Chloride 0.9% 1,000 ML IV SCH ×3 (05:13→21:36)
[2021-02-09 07:40] LABS: ANION GAP 10.7 mmol/L (5-15); CHLORIDE,CL 110 mmol/L (98-107); SODIUM,NA 145 mmol/L (136-145)
[2021-02-09] MEDS: Naloxegol Oxalate 25 MG Tab PO SCH (09:15)
[2021-02-09] MEDS: Ondansetron 4 MG/2 ML SDV IVPUSH PRN (09:23)
--- NOTE | 2021-02-09 12:18 | PCM.PN ---
- General Info Date of Service: 02/09/21 Admission Dx/Problem (Free Text): Acute pancreatitis - Review of Systems Systems Review Comment:: Jennifer is seen today on inpatient rounds. He states the Movantik he received yesterday for opioid induced constipation caused him to have bloating and cramping so he refused today. He has not had a BM but feels like he needs to and is passing flatus. He was able to go up to 6 hours without pain medication. His lipase has dropped from 6286 upon admission to 430 today. He would be willing to try oral intake today. His pain is largely the LLQ, it has moved from initial presentation of LUQ. He is anxious to be discharged to home. - Patient Data Vitals - Most Recent: Last Vital Signs Temp 96.3 F L 02/09/21 10:56 Pulse 98 02/09/21 10:56 Resp 20 02/09/21 10:56 BP 139/84 02/09/21 10:56 Pulse Ox 92 L 02/09/21 10:56 Weight - Most Recent: 188 lb I&O - Last 24 Hours: Intake & Output 02/08/21 02/09/21 02/09/21 22:59 06:59 14:59 Intake Total 1851 1699 Balance 1851 1699 Lab Results Last 24 Hours: Laboratory Results - last 24 hr 02/09/21 02/09/21 Range/Units 07:15 07:15 WBC 12.83 H (5.00-10.00) 10^3/uL RBC 4.04 L (4.50-6.00) 10^6/uL Hgb 12.6 L D (13.0-17.0) g/dL Hct 39.0 L (40.0-52.0) % MCV 96.5 H (82.0-92.0) fL MCH 31.2 H (27.0-31.0) pg MCHC 32.3 (32.0-36.0) g/dL RDW 13.1 (11.5-14.5) % Plt Count 212 (150-400) 10^3/uL MPV 9.3 (7.4-10.4) fL Immature Gran % (Auto) 0.4 (0.0-5.0) % Neut % (Auto) 86.0 H (50.0-70.0) % Lymph % (Auto) 7.4 L (20.0-40.0) % [place] % (Auto) 5.8 (2.0-8.0) % Eos % (Auto) 0.2 L (1.0-3.0) % Baso % (Auto) 0.2 (0.0-1.0) % Neut # (Auto) 11.02 H (2.50-7.00) 10^3/uL Lymph # (Auto) 0.95 L (1.00-4.00) 10^3/uL [place] # (Auto) 0.75 (0.10-0.80) 10^3/uL Eos # (Auto) 0.03 L (0.10-0.30) 10^3/uL Baso # (Auto) 0.03 (0.00-0.10) 10^3/uL Immature Gran # (Auto) 0.05 (0.00-0.50) 10^3/uL Sodium 145 (136-145) mmol/L Potassium 4.1 (3.5-5.1) mmol/L Chloride 110 H (98-107) mmol/L Carbon Dioxide 28.4 (21.0-32.0) mmol/L Anion Gap 10.7 (5-15) mmol/L BUN 20 H (7-18) mg/dL Creatinine 1.01 (0.51-1.17) mg/dL Est Cr Clr Drug Dosing 78.97 mL/min Estimated GFR (MDRD) > 60 mL/min Glucose 127 (70-140) mg/dL Calcium 8.0 L (8.7-10.3) mg/dL Total Bilirubin 0.9 (0.2-1.0) mg/dL AST 25 (15-37) U/L ALT 32 (14-63) U/L Alkaline Phosphatase 48 (46-116) U/L Total Protein 6.1 L (6.4-8.2) g/dL Albumin 2.67 L (3.40-5.00) g/dL Lipase 430 H (73-393) U/L Med Orders - Current: Current Medications Hydromorphone HCl (Hydromorphone 1 Mg/Ml Syringe) 1 mg IVPUSH Q1H PRN PRN Reason: Abdominal Pain Last Admin: 02/09/21 09:28 Dose: 1 mg Documented by: Sodium Chloride (Normal Saline) 50 mls @ 200 mls/min IV ASDIRECTED [facility] Last Admin: 02/07/21 12:32 Dose: 200 mls/min Documented by: Sodium Chloride (Normal Saline) 1,000 mls @ 100 mls/hr IV ASDIRECTED [facility] Last Admin: 02/09/21 05:13 Dose: 150 mls/hr Documented by: Naloxegol (Naloxegol Oxalate 25 Mg Tab) 25 mg PO DAILY [facility] Last Admin: 02/09/21 09:15 Dose: Not Given Documented by: Ondansetron HCl (Ondansetron 4 Mg/2 Ml Sdv) 4 mg IVPUSH Q4H PRN PRN Reason: Nausea/Vomiting Last Admin: 02/09/21 09:23 Dose: 4 mg Documented by: Discontinued Medications Hydromorphone HCl (Hydromorphone 1 Mg/Ml Syringe) 1 mg IVPUSH ONETIME ONE Stop: 02/07/21 11:41 Last Admin: 02/07/21 11:50 Dose: 1 mg Documented by: Hydromorphone HCl (Hydromorphone 1 Mg/Ml Syringe) Confirm Administered Dose 1 mg .ROUTE .STK-MED ONE Stop: 02/07/21 11:43 Last Admin: 02/07/21 13:17 Dose: Not Given Documented by: Sodium Chloride (Normal Saline) 1,000 mls @ 1,000 mls/hr IV .BOLUS ONE Stop: 02/07/21 12:10 Last Admin: 02/07/21 11:05 Dose: 1,000 mls/hr Documented by: Iopamidol (Iopamidol 755 Mg/Ml 75 Ml Bottle) 75 ml IVPUSH ONETIME ONE Stop: 02/07/21 11:21 Last Admin: 02/07/21 12:32 Dose: 75 ml Documented by: Morphine Sulfate (Morphine 2 Mg/Ml Syringe) Confirm Administered Dose 2 mg .ROUTE .STK-MED ONE Stop: 02/07/21 10:53 Last Admin: 02/07/21 11:32 Dose: Not Given Documented by: Morphine Sulfate (Morphine 2 Mg/Ml Syringe) 2 mg IVPUSH ONETIME ONE Stop: 02/07/21 11:14 Last Admin: 02/07/21 11:00 Dose: 2 mg Documented by: Morphine Sulfate (Morphine 2 Mg/Ml Syringe) 2 mg IVPUSH ONETIME ONE Stop: 02/07/21 11:14 Last Admin: 02/07/21 11:20 Dose: 2 mg Documented by: Morphine Sulfate (Morphine 2 Mg/Ml Syringe) Confirm Administered Dose 2 mg .ROUTE .STK-MED ONE Stop: 02/07/21 11:15 Last Admin: 02/07/21 11:32 Dose: Not Given Documented by: Ondansetron HCl (Ondansetron 4 Mg/2 Ml Sdv) Confirm Administered Dose 4 mg .ROU TE .STK-MED ONE Stop: 02/07/21 10:53 Last Admin: 02/07/21 11:32 Dose: Not Given Documented by: Ondansetron HCl (Ondansetron 4 Mg/2 Ml Sdv) 4 mg IVPUSH ONETIME ONE Stop: 02/07/21 11:14 Last Admin: 02/07/21 10:56 Dose: 4 mg Documented by: - Exam General: Alert, Oriented, Cooperative, No Acute Distress Lungs: Normal Respiratory Effort Cardiovascular: Regular Rate, Regular Rhythm, No Murmurs GI/Abdominal Exam: Normal Bowel Sounds, Non-Tender, Distended (Mild abdominal distention) - Patient Data Lab Results Last 24 hrs: Laboratory Results - last 24 hr 02/09/21 02/09/21 Range/Units 07:15 07:15 WBC 12.83 H (5.00-10.00) 10^3/uL RBC 4.04 L (4.50-6.00) 10^6/uL Hgb 12.6 L D (13.0-17.0) g/dL Hct 39.0 L (40.0-52.0) % MCV 96.5 H (82.0-92.0) fL MCH 31.2 H (27.0-31.0) pg MCHC 32.3 (32.0-36.0) g/dL RDW 13.1 (11.5-14.5) % Plt Count 212 (150-400) 10^3/uL MPV 9.3 (7.4-10.4) fL Immature Gran % (Auto) 0.4 (0.0-5.0) % Neut % (Auto) 86.0 H (50.0-70.0) % Lymph % (Auto) 7.4 L (20.0-40.0) % [place] % (Auto) 5.8 (2.0-8.0) % Eos % (Auto) 0.2 L (1.0-3.0) % Baso % (Auto) 0.2 (0.0-1.0) % Neut # (Auto) 11.02 H (2.50-7.00) 10^3/uL Lymph # (Auto) 0.95 L (1.00-4.00) 10^3/uL [place] # (Auto) 0.75 (0.10-0.80) 10^3/uL Eos # (Auto) 0.03 L (0.10-0.30) 10^3/uL Baso # (Auto) 0.03 (0.00-0.10) 10^3/uL Immature Gran # (Auto) 0.05 (0.00-0.50) 10^3/uL Sodium 145 (136-145) mmol/L Potassium 4.1 (3.5-5.1) mmol/L Chloride 110 H (98-107) mmol/L Carbon Dioxide 28.4 (21.0-32.0) mmol/L Anion Gap 10.7 (5-15) mmol/L BUN 20 H (7-18) mg/dL Creatinine 1.01 (0.51-1.17) mg/dL Est Cr Clr Drug Dosing 78.97 mL/min Estimated GFR (MDRD) > 60 mL/min Glucose 127 (70-140) mg/dL Calcium 8.0 L (8.7-10.3) mg/dL Total Bilirubin 0.9 (0.2-1.0) mg/dL AST 25 (15-37) U/L ALT 32 (14-63) U/L Alkaline Phosphatase 48 (46-116) U/L Total Protein 6.1 L (6.4-8.2) g/dL Albumin 2.67 L (3.40-5.00) g/dL Lipase 430 H (73-393) U/L Result Diagrams: 02/09/21 07:15 02/09/21 07:15 Sepsis Event Note - Evaluation Sepsis Screening Result: No Definite Risk - Focused Exam Vital Signs: Vital Signs Temp Pulse Resp BP Pulse Ox 02/09/21 10:56 96.3 F L 98 20 139/84 92 L 02/09/21 07:00 97.7 F 94 20 141/86 H 93 L 02/09/21 03:00 98.9 F 96 16 129/78 93 L - Problem List Review Problem List Initiated/Reviewed/Updated: Yes - My Orders Last 24 Hours: My Active Orders 02/09/21 Dinner Mechanical Soft Diet [DIET] 02/10/21 05:11 CBC WITH AUTO DIFF [HEME] AM COMPREHENSIVE METABOLIC PN,CMP [CHEM] AM LIPASE [CHEM] AM - Assessment Assessment:: Admission Diagnoses: Acute pancreatitis, no clear etiology - Decrease NS to 100 mL/hour (02/09/2021) - Start mechanical soft diet and advance as tolerated (02/09/2021) - Hydromorphone 1 mg IV q 1 hour PRN - Lipid panel (elevated total cholesterol and LDL but TG's normal) - Daily labs Elevated fasting blood culture - A1C 5.8, will need monitoring as an outpatient to watch for progression to diabetes Intrarenal nephrolithiasis without obstruction - No further intervention necessary Opioid induced constipation - Start Movantik 25 mg PO daily (02/08), held 02/09 per patient request due to bloating CODE STATUS: Full Code
[2021-02-09] MEDS ORDERED: Bisacodyl 5 MG Tab PO PRN (20:47)
[2021-02-10] MEDS: HYDROmorphone 1 MG/ML Syringe IVPUSH PRN (03:44)
[2021-02-10 09:10] LABS: CHLORIDE,CL 105 mmol/L (98-107); SODIUM,NA 142 mmol/L (136-145)
--- NOTE | 2021-02-10 09:26 | PCM.DCSUM1 ---
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 He had been hunting in the area and developed severe LUQ pain with nausea. He has a hx or nephrolithiasis and so thought this may be what was occurring. CT abdomen/pelvis was obtained which showed acute pancreatitis with an elevated lipase of 6286 and elevated Amylase. He did have LEFT intrarenal calculi as well, nothing obstructive. He was made NPO status and started on hydromorphone 1 mg IV q 1 hour PRN. The first day he required 10 mg of hydromorphone in 24 hours. He was initially on NS at 150 mL/hour and this was decreased to 100 mL/hour on 02/09. Diet was started, mechanical soft, on 02/09 and he has been able to eat and drink. There was no clear etiology for his pancreatitis. Lipid panel was checked and TG's were normal. He had some alcoholic beverages the day the pain occurred but nothing excessive and he has no hx of alcohol misuse. He did receive one dose of Movantik 25 mg on 02/08 but he felt like this made his cramping worse and refused it additional days. He had a large BM the morning of discharge. He has not required pain medication in over 6 hours. He is anxious for discharge. I offered him pain medication at discharge but he declined, however, his is requesting a limited supply that they will feel in [place], if necessary, when they return. Of note, lipase was 136 at discharge. Diagnosis: Stroke: No Modified Ziyad Scale: No Signif.Disability Despite Sympt.Able to Carry Out Usual Act./Duties Modified Daisy Scale Score: 1 - Discharge Data Discharge Date: 02/10/21 Discharge Disposition: Home, Self-Care 01 Condition: Good - Referral to Home Health Primary Care Physician: PCP Not In Area - Patient Instructions Diet: Regular Diet as Tolerated - Discharge Plan *PRESCRIPTION DRUG MONITORING PROGRAM REVIEWED*: No *COPY OF PRESCRIPTION DRUG MONITORING REPORT IN PATIENT BRUCE: No Home Medications: Home Meds . [No Known Home Meds] 02/07/21 [History] Forms: ED Department Discharge Referrals: PCP,None [Ordering Only Provider] - - Discharge Summary/Plan Comment DC Time >30 min.: No Total # of Minutes for Discharge Time: 18 - General Info Date of Service: 02/10/21 Admission Dx/Problem (Free Text: Acute pancreatitis - Patient Data Vitals - Most Recent: Last Vital Signs Temp 97.9 F 02/10/21 05:56 Pulse 87 02/10/21 05:56 Resp 20 02/10/21 05:56 BP 154/88 H 02/10/21 05:56 Pulse Ox 93 L 02/10/21 05:56 Weight - Most Recent: 188 lb I&O - Last 24 hours: Intake & Output 02/09/21 02/10/21 02/10/21 22:59 06:59 14:59 Intake Total 1939 1211 Balance 1939 1211 Lab Results - Last 24 hrs: Laboratory Results - last 24 hr 02/10/21 02/10/21 Range/Units 07:28 07:28 WBC 11.12 H (5.00-10.00) 10^3/uL RBC 4.17 L (4.50-6.00) 10^6/uL Hgb 12.9 L (13.0-17.0) g/dL Hct 40.2 (40.0-52.0) % MCV 96.4 H (82.0-92.0) fL MCH 30.9 (27.0-31.0) pg MCHC 32.1 (32.0-36.0) g/dL RDW 12.7 (11.5-14.5) % Plt Count 239 (150-400) 10^3/uL MPV 9.4 (7.4-10.4) fL Immature Gran % (Auto) 0.3 (0.0-5.0) % Neut % (Auto) 81.3 H (50.0-70.0) % Lymph % (Auto) 9.5 L (20.0-40.0) % [place] % (Auto) 7.1 (2.0-8.0) % Eos % (Auto) 1.4 (1.0-3.0) % Baso % (Auto) 0.4 (0.0-1.0) % Neut # (Auto) 9.04 H (2.50-7.00) 10^3/uL Lymph # (Auto) 1.06 (1.00-4.00) 10^3/uL [place] # (Auto) 0.79 (0.10-0.80) 10^3/uL Eos # (Auto) 0.16 (0.10-0.30) 10^3/uL Baso # (Auto) 0.04 (0.00-0.10) 10^3/uL Immature Gran # (Auto) 0.03 (0.00-0.50) 10^3/uL Sodium 142 (136-145) mmol/L Potassium 3.7 (3.5-5.1) mmol/L Chloride 105 (98-107) mmol/L Carbon Dioxide 26.7 (21.0-32.0) mmol/L Anion Gap 14.0 (5-15) mmol/L BUN 14 (7-18) mg/dL Creatinine 0.95 (0.51-1.17) mg/dL Est Cr Clr Drug Dosing 83.95 mL/min Estimated GFR (MDRD) > 60 mL/min Glucose 114 (70-140) mg/dL Calcium 7.9 L (8.7-10.3) mg/dL Total Bilirubin 0.9 (0.2-1.0) mg/dL AST 48 H (15-37) U/L ALT 60 (14-63) U/L Alkaline Phosphatase 66 (46-116) U/L Total Protein 6.8 (6.4-8.2) g/dL Albumin 2.92 L (3.40-5.00) g/dL Lipase 136 (73-393) U/L Med Orders - Current: Current Medications Bisacodyl (Bisacodyl 5 Mg Tab) 5 - 10 mg PO DAILY PRN PRN Reason: Constipation Last Admin: 02/09/21 21:32 Dose: 10 mg Documented by: Hydromorphone HCl (Hydromorphone 1 Mg/Ml Syringe) 1 mg IVPUSH Q1H PRN PRN Reason: Abdominal Pain Last Admin: 02/10/21 03:44 Dose: 1 mg Documented by: Sodium Chloride (Normal Saline) 50 mls @ 200 mls/min IV ASDIRECTED [facility] Last Admin: 02/07/21 12:32 Dose: 200 mls/min Documented by: Naloxegol (Naloxegol Oxalate 25 Mg Tab) 25 mg PO DAILY [facility] Last Admin: 02/09/21 09:15 Dose: Not Given Documented by: Ondansetron HCl (Ondansetron 4 Mg/2 Ml Sdv) 4 mg IVPUSH Q4H PRN PRN Reason: Nausea/Vomiting Last Admin: 02/09/21 09:23 Dose: 4 mg Documented by: Discontinued Medications Hydromorphone HCl (Hydromorphone 1 Mg/Ml Syringe) 1 mg IVPUSH ONETIME ONE Stop: 02/07/21 11:41 Last Admin: 02/07/21 11:50 Dose: 1 mg Documented by: Hydromorphone HCl (Hydromorphone 1 Mg/Ml Syringe) Confirm Administered Dose 1 mg .ROUTE .STK-MED ONE Stop: 02/07/21 11:43 Last Admin: 02/07/21 13:17 Dose: Not Given Documented by: Sodium Chloride (Normal Saline) 1,000 mls @ 1,000 mls/hr IV .BOLUS ONE Stop: 02/07/21 12:10 Last Admin: 02/07/21 11:05 Dose: 1,000 mls/hr Documented by: Sodium Chloride (Normal Saline) 1,000 mls @ 100 mls/hr IV ASDIRECTED [facility] Last Admin: 02/09/21 21:36 Dose: 100 mls/hr Documented by: Iopamidol (Iopamidol 755 Mg/Ml 75 Ml Bottle) 75 ml IVPUSH ONETIME ONE Stop: 02/07/21 11:21 Last Admin: 02/07/21 12:32 Dose: 75 ml Documented by: Morphine Sulfate (Morphine 2 Mg/Ml Syringe) Confirm Administered Dose 2 mg .ROUTE .STK-MED ONE Stop: 02/07/21 10:53 Last Admin: 02/07/21 11:32 Dose: Not Given Documented by: Morphine Sulfate (Morphine 2 Mg/Ml Syringe) 2 mg IVPUSH ONETIME ONE Stop: 02/07/21 11:14 Last Admin: 02/07/21 11:00 Dose: 2 mg Documented by: Morphine Sulfate (Morphine 2 Mg/Ml Syringe) 2 mg IVPUSH ONETIME ONE Stop: 02/07/21 11:14 Last Admin: 02/07/21 11:20 Dose: 2 mg Documented by: Morphine Sulfate (Morphine 2 Mg/Ml Syringe) Confirm Administered Dose 2 mg .ROUTE .STK-MED ONE Stop: 02/07/21 11:15 Last Admin: 02/07/21 11:32 Dose: Not Given Documented by: Ondansetron HCl (Ondansetron 4 Mg/2 Ml Sdv) Confirm Administered Dose 4 mg .ROUTE .STK-MED ONE Stop: 02/07/21 10:53 Last Admin: 02/07/21 11:32 Dose: Not Given Documented by: Ondansetron HCl (Ondansetron 4 Mg/2 Ml Sdv) 4 mg IVPUSH ONETIME ONE Stop: 02/07/21 11:14 Last Admin: 02/07/21 10:56 Dose: 4 mg Documented by: - Exam General: Reports: Alert, Oriented, Cooperative, No Acute Distress Lungs: Reports: Normal Respiratory Effort, Crackles (Right lung base) Cardiovascular: Reports: Regular Rate, Regular Rhythm, No Murmurs GI/Abdominal Exam: Normal Bowel Sounds, Soft, Non-Tender, No Organomegaly
== END 2021-02-10 10:50 | disposition home or self-care (01) | DRG 440 ==
LOC: KA.ED 10:48 → KA.MS 14:23
PROVIDERS: ADMIT Physician Assistant; ATTEND Internal Medicine
DX: K85.90 Acute pancreatitis without necrosis or infection, unspecified (principal); N20.0 Calculus of kidney; Z87.442 Personal history of urinary calculi; R18.8 Other ascites; K59.03 Drug induced constipation; T40.2X5A Adverse effect of other opioids, initial encounter; K76.0 Fatty (change of) liver, not elsewhere classified; Z20.822 Contact with and (suspected) exposure to COVID-19
CPT/HCPCS: 36415; 74177; 80053; 80061; 82150; 83036; 83605; 83690; 83735; 85025; 96374; 96375; 96376; 99285-25; A9270-GY; J1170; J2270; J2405; J7030; Q9967; U0002